=== PATIENT | female | born 1990 | race Caucasian/White ===

== ENCOUNTER 2018-02-13 12:19 | Emergency (ER) | payer BC ==
[~2018-02-13] VITALS: Ht 162.6 cm; Wt 82.2 kg
[~2018-02-13 12:19] MED LIST: ALDACTONE100 MG PO; BENADRYL25 MG PO; JUNEL FE 1/21 TABLET PO; METFORMIN HCL750 MG PO; MIRALAX255 GM PO; MOBIC7.5 MG PO; ULTRAM50 MG PO
[2018-02-13 13:19] LABS: HEMATOCRIT 36.6 % (36.0-46.0); HEMOGLOBIN 11.9 G/DL (11.9-15.5); MCH 28.7 PG (29.0-34.0); MCHC 32.5 G/DL (30.0-36.0); MCV 88.2 FL (83-99); PLATELET COUNT 294 K/uL (156-360); RBC DIS.WIDTH-CV 14.1 % (11.8-14.6); RBC DIS.WIDTH-SD 45.2 % (39-53); RED BLOOD COUNT 4.15 M/uL (3.80-5.20); WHITE BLOOD COUNT 8.6 K/uL (4.1-10.2)
[2018-02-13 13:36] LABS: CHLORIDE 109 mEq/L (99-109); POTASSIUM 4.2 mEq/L (3.7-5.4); SODIUM 140 mEq/L (136-147)
[2018-02-13 13:39] LABS: GLUCOSE 106 mg/dL (70-99); TOTAL PROTEIN 7.2 g/dL (6.4-8.3)
[2018-02-13 13:41] LABS: TOTAL BILIRUBIN 0.2 mg/dL (0.0-1.0)
[2018-02-13 13:42] LABS: ALKALINE PHOSPHATASE 107 IU/L (3-129); CREATININE 0.8 mg/dL (0.6-1.3); GFR ESTIMATE (CALCULATED) > 59 mL/min/
[2018-02-13 13:43] LABS: UREA NITROGEN (BUN) 12 mg/dL (9-23)
[2018-02-13 13:44] LABS: AST (GOT) 27 IU/L (2-34)
[2018-02-13 13:45] LABS: ALT (GPT) 25 IU/L (3-49)
[2018-02-13 13:52] LABS: APPEARANCE CLEAR ((CLEAR)); BILIRUBIN NEGATIVE; BLOOD LARGE; COLOR YELLOW ((YELLOW)); GLUCOSE (STRIP) NEGATIVE; KETONES NEGATIVE; LEUKOCYTES TRACE; NITRITE NEGATIVE; PROTEIN (STRIP) 30; SPECIFIC GRAVITY 1.024 (1.000-1.030); UROBILINOGEN 0.2 MG/DL (0.2-1.0)
[2018-02-13 13:53] LABS: QUANTITATIVE HCG < 4.0 MIU/ML
[2018-02-13 14:34] LABS: BACTERIA NONE SEEN /HPF; EPITHELIAL CELLS 1+ /HPF; MUCUS NONE SEEN /LPF; RED BLOOD CELLS 0-5 /HPF (0-5); WHITE BLOOD CELLS 0-5 /HPF (0-5)
[2018-02-13 17:14] VITALS: BP 126/77
== END 2018-02-13 17:15 | disposition home or self-care (01) ==
LOC: EME 12:19
PROVIDERS: Nurse Practitioner Family
DX: N93.9 Abnormal uterine and vaginal bleeding, unspecified (principal); R10.2 Pelvic and perineal pain; K21.9 Gastro-esophageal reflux disease without esophagitis; E28.2 Polycystic ovarian syndrome; Z87.442 Personal history of urinary calculi; Z98.890 Other specified postprocedural states; Z88.1 Allergy status to other antibiotic agents; Z88.0 Allergy status to penicillin; Z91.018 Allergy to other foods; J30.1 Allergic rhinitis due to pollen; Z91.048 Other nonmedicinal substance allergy status
CPT/HCPCS: 76856; 80053; 81003; 84702; 85027; 99281; 99283